=== PATIENT | female | born 1945 | race Caucasian/White ===

== ENCOUNTER 2017-04-20 14:00 | Inpatient (IN) | payer MEDICARE, OTHER ==
[~2017-04-20] VITALS: Ht 160 cm; Wt 70.4 kg
[~2017-04-20 14:00] MED LIST: ASPIRIN EC81 MG PO; CARDIZEM CD240 MG PO; DUONEB 2.5-0.5M1 AMP NEB; ELIQUIS2.5 MG PO; NEXIUM40 MG PO; SYNTHROID125 MCG PO
[2017-04-20 14:53] LABS: BASOPHIL 0.3 % (0-2); EOSINOPHIL 2.1 % (0-7); HCT 33.6 % (37.0-47.0); HGB 10.7 g/dl (12.5-16.0); LYMPHOCYTE 16.6 % (15-48); MCH 33.6 pg (25.0-31.0); MCHC 31.8 g/dL (32.0-36.0); MCV 105.7 fL (78.0-100.0); MONOCYTE 7.5 % (0-12); MPV 9.9 fL (6.0-9.5); NEUTROPHIL 73.5 % (41-80); PLT 374 K/uL (150-400); RBC 3.18 M/uL (4.20-5.40); RDW 15.7 % (11.5-14.0); WBC 8.7 K/uL (4.0-10.5)
[2017-04-20 15:02] LABS: BILIRUBIN - TOTAL 0.5 mg/dL (0.1-1.0); CREATININE 1.2 mg/dL (0.5-1.0); GLOBULIN (CALCULATION) 4.6 g/dL (2.2-4.2); POTASSIUM 4.6 mmol/L (3.5-5.1); TOTAL PROTEIN 8.6 g/dL (6.4-8.3)
[2017-04-20 20:35] LABS: INR 1.04 (0.9-1.2); PROTHROMBIN TIME 12.7 SECONDS (11.4-13.2)
[2017-04-21 00:25] LABS: BILIRUBIN NEGATIVE (NEGATIVE); BLOOD 1+ Ery/uL (NEGATIVE); CLARITY CLEAR (CLEAR); COLOR YELLOW (YELLOW); GLUCOSE (U) NORMAL (NORMAL); KETONE (U) NEGATIVE (NEGATIVE); LEUKOCYTES 1+ Leu/uL (NEGATIVE); NITRITE NEGATIVE (NEGATIVE); PROTEIN 2+ mg/dL (NEGATIVE); SPECIFIC GRAVITY <=1.005 (1.001-1.030); UROBILINOGEN 0.2 mg/dL (0.2-1.0)
[2017-04-21 00:35] LABS: BACTERIA TRACE
[2017-04-21 07:20] LABS: BASOPHIL 0 % (0-2); EOSINOPHIL 0 % (0-7); HCT 31.8 % (37.0-47.0); HGB 10.3 g/dl (12.5-16.0); LYMPHOCYTE 5.6 % (15-48); MCH 33.3 pg (25.0-31.0); MCHC 32.4 g/dL (32.0-36.0); MCV 102.9 fL (78.0-100.0); MONOCYTE 1.2 % (0-12); MPV 9.6 fL (6.0-9.5); PLT 334 K/uL (150-400); RBC 3.09 M/uL (4.20-5.40); RDW 15.5 % (11.5-14.0); WBC 9.4 K/uL (4.0-10.5)
[2017-04-21 07:25] LABS: NEUTROPHIL 93.2 % (41-80)
[2017-04-21 07:40] LABS: CREATININE 1.1 mg/dL (0.5-1.0); POTASSIUM 4.1 mmol/L (3.5-5.1)
--- NOTE | 2017-04-22 04:33 | NUR ---
04/21/17 2330 PT HAD A NOSE BLEED WITH MULTIPLE ATTEMPTS TO GET IT TO STOP.NOTIFIED DR BYERS SHE NOTIFIED DR ANTOINE IN ER HE CAME UP AND INSERTED A JOHN ROCKET IN THE RIGHT NARE. DR ANTOINE SAID IT WAS A POSTERIOR BLEED AND THE BLOOD WAS GOING DOWN THE BACK OF HER THROAT. 04/22/17 0250 PT SAID SHE FELL ASLEEP AND THE JOHN ROCKET JUST FELL OUT. BLEEDING HAD STOPPED
[2017-04-22 06:00] LABS: HCT 27.5 % (37.0-47.0); HGB 8.6 g/dl (12.5-16.0); MCH 32.8 pg (25.0-31.0); MCHC 31.3 g/dL (32.0-36.0); MPV 9.6 fL (6.0-9.5); RBC 2.62 M/uL (4.20-5.40)
[2017-04-22 06:02] LABS: WBC 18.5 K/uL (4.0-10.5)
[2017-04-22 06:18] LABS: CREATININE 1.9 mg/dL (0.5-1.0); MAGNESIUM 2.08 mg/dL (1.40-2.10)
[2017-04-22 21:19] LABS: BASOPHIL NO PRINT 0.1 % (0-2); EOSINOPHIL NO PRINT 0.3 % (0-7); HCT 34.2 % (37.0-47.0); HGB 10.9 g/dL (12.5-16.0); MCH NO PRINT 32.7 pg (25.0-31.0); MCHC NO PRINT 31.9 g/dL (32.0-36.0); MCV NO PRINT 102.7 fL (78.0-100.0); MONOCYTE NO PRINT 7.2 % (0-12); MPV NO PRINT 9.7 fL (6.0-9.5); NEUTROPHIL NO PRINT 80.4 % (41-80); PLT NO PRINT 315 K/uL (150-400); RBC NO PRINT 3.33 M/uL (4.20-5.40); RDW NO PRINT 18.1 % (11.5-14.0); WBC NO PRINT 14.3 K/uL (4.0-10.5)
[2017-04-23 05:57] LABS: HGB 11.1 g/dl (12.5-16.0); MCH 32.9 pg (25.0-31.0); MCHC 32.6 g/dL (32.0-36.0); MCV 100.9 fL (78.0-100.0); MPV 9.4 fL (6.0-9.5); RBC 3.37 M/uL (4.20-5.40); RDW 18.6 % (11.5-14.0); WBC 9.7 K/uL (4.0-10.5)
[2017-04-23 06:14] LABS: CREATININE 1.2 mg/dL (0.5-1.0); POTASSIUM 3.8 mmol/L (3.5-5.1)
[2017-04-23] MEDS ORDERED: COUMADIN5 MG PO (09:17)
[2017-04-23] MEDS ORDERED: LASIX40 MG PO (12:48)
[2017-04-23] MEDS ORDERED: ALLOPURINOL100 MG PO (12:49)
[2017-04-23] MEDS ORDERED: ZOCOR40 MG PO (12:49)
[2017-04-23] MEDS ORDERED: DIGITEK125 MCG PO (12:49)
[2017-04-23] MEDS ORDERED: LOPRESSOR25 MG PO (12:50)
== END 2017-04-23 12:50 | disposition home health service (06) | DRG 189 ==
LOC: FER 14:00 → FTCU 17:35
PROVIDERS: Internal Medicine; Nurse Practitioner; ADMIT Internal Medicine
PROC: 30233N1 Transfusion of Nonautologous Red Blood Cells into Peripheral Vein, Percutaneous Approach (ICD-10-PCS; principal; 2017-04-22)
DX: J96.01 Acute respiratory failure with hypoxia (principal); N18.4 Chronic kidney disease, stage 4 (severe); N17.9 Acute kidney failure, unspecified; I48.92 Unspecified atrial flutter; E87.1 Hypo-osmolality and hyponatremia; I13.0 Hypertensive heart and chronic kidney disease with heart failure and stage 1 through stage 4 chronic kidney disease, or unspecified chronic kidney disease; I50.9 Heart failure, unspecified; I27.2 Other secondary pulmonary hypertension; D62 Acute posthemorrhagic anemia; M10.9 Gout, unspecified; E03.9 Hypothyroidism, unspecified; E78.5 Hyperlipidemia, unspecified; I12.9 Hypertensive chronic kidney disease with stage 1 through stage 4 chronic kidney disease, or unspecified chronic kidney disease; J44.9 Chronic obstructive pulmonary disease, unspecified; I34.0 Nonrheumatic mitral (valve) insufficiency; R04.0 Epistaxis; Z91.041 Radiographic dye allergy status; Z88.8 Allergy status to other drugs, medicaments and biological substances; Z79.899 Other long term (current) drug therapy; Z99.81 Dependence on supplemental oxygen
CPT/HCPCS: 36415; 36430; 36600; 71010; 80048; 80053; 80162; 81001; 82803; 83735; 83880; 84443; 84484; 85014; 85018; 85025; 85610; 86850; 86900; 86901; 86922; 93005; 94640; 97116; 97162; 97166; 97530-GP; 97535; J1940; J2930; P9016